=== PATIENT | female | born 1950 | race Caucasian/White ===

== ENCOUNTER → 2019-11-25 | Outpatient (CLI) | payer MEDICARE, BC ==
[~2019-11-25] MED LIST: ASPIRIN 81M81 MG/TA2 PO; CELEBREX 1100 MG/CAP PO; EFFEXOR XR37.5 MG/CA PO; NEURONTIN100 MG/CAP PO; NEURONTIN300 MG/CAP PO; NORCO 325 MG-51 TAB PO; PLAQUENIL 200M200 MG PO; PRILOSEC 20MG20 MG PO; PROCARDIA XL 3030 MG PO; SYNTHROID0.05 MG/TA PO; VITAMIN D1000 IU PO; ZYRTEC5 MG PO
== END ==
LOC: COL.RAD 11-24 08:15
DX: M75.22 Bicipital tendinitis, left shoulder (principal); M75.102 Unspecified rotator cuff tear or rupture of left shoulder, not specified as traumatic

== ENCOUNTER → 2020-05-16 | Outpatient (CLI) | payer MEDICARE, BC | LOC: MC.RAD 09:40 | DX: Z12.31 Encounter for screening mammogram for malignant neoplasm of breast (principal) ==

== ENCOUNTER 2020-09-20 06:50 | Day surgery (SDC) | payer MEDICARE, BC ==
[~2020-09-20] VITALS: Ht 147.3 cm; Wt 36.4 kg
[2020-09-20] MEDS ORDERED: SYNTHROID0.075 MG/T PO (07:10)
[2020-09-20] MEDS ORDERED: PROTONIX 40MG T40 MG PO (07:12)
[2020-09-20] MEDS ORDERED: TOPAMAX 25MG25 M1 PO (07:13)
[2020-09-20 07:48] VITALS: BP 178/80; PULSE 54; TEMP 98.7
[2020-09-20 08:35] VITALS: BP 145/99; PULSE 63
--- NOTE | 2020-09-20 08:35 | NUR ---
Pt to [facility] via cart from [facility]. Pt drowsy, but awakens easily. Pt ambulates to recliner with stand by assistance. Warm blankets placed on pt. Hot tea given per pt request. Pt does not want friend brought back to room. Will continue to monitor. Call light within reach.
[2020-09-20 08:50] VITALS: BP 151/76; PULSE 66
--- NOTE | 2020-09-20 08:50 | NUR ---
Pt standing at recliner wanting to get dressed. Assisted pt to sitting back down. into speak with pt at this time.
[2020-09-20 09:05] VITALS: BP 162/90; PULSE 65
--- NOTE | 2020-09-20 09:05 | NUR ---
Discharge instructions reviewed. Pt voices understanding. IV site discontinued with all parts intact. Pt up to dress. Call light within reach.
--- NOTE | 2020-09-20 09:20 | NUR ---
Pt escorted to private car via wheel chair. Pt accompanied home by her friend.
== END 2020-09-20 09:20 | disposition home or self-care (01) ==
LOC: SDCO 06:50
DX: K21.9 Gastro-esophageal reflux disease without esophagitis (principal); K44.9 Diaphragmatic hernia without obstruction or gangrene; K22.70 Barrett's esophagus without dysplasia; K22.4 Dyskinesia of esophagus; K29.70 Gastritis, unspecified, without bleeding; G43.909 Migraine, unspecified, not intractable, without status migrainosus; Z79.82 Long term (current) use of aspirin; M79.7 Fibromyalgia; I73.00 Raynaud's syndrome without gangrene; M35.00 Sjogren syndrome, unspecified; E03.9 Hypothyroidism, unspecified; Z88.1 Allergy status to other antibiotic agents; Z88.6 Allergy status to analgesic agent; Z88.8 Allergy status to other drugs, medicaments and biological substances
CPT/HCPCS: J2704; J7030

== ENCOUNTER → 2021-05-21 | Outpatient (CLI) | payer MEDICARE, BC ==
[~2021-05-21] MED LIST changes: +PROTONIX 40MG T40 MG PO; +SYNTHROID0.075 MG/T PO; +TOPAMAX 25MG25 M1 PO
== END ==
LOC: MC.RAD 11:27
DX: Z12.31 Encounter for screening mammogram for malignant neoplasm of breast (principal)